=== PATIENT | female | born 1985 | race Two or more races ===

== ENCOUNTER 2023-03-08 11:50 | Emergency (ER) | payer OTHER ==
[~2023-03-08] VITALS: Ht 167.6 cm; Wt 61.2 kg
[~2023-03-08 11:50] MED LIST: PRENATAL CAPLE1 EACH PO; SYNTHROID50 MCG PO
[2023-03-08] MEDS ORDERED: LAMICTAL25 MG PO (12:50)
[2023-03-08] MEDS ORDERED: ADDERALL 20 MG20 MG (12:51)
[2023-03-08] MEDS ORDERED: WELLBUTRIN SR150 MG PO (12:51)
[2023-03-08] MEDS ORDERED: CLONAZEPAM1 MG PO (12:51)
[2023-03-08 14:13] LABS: HEMATOCRIT 44.5 % (36.0-45.00); HEMOGLOBIN 14.9 g/dL (12.0-15.00); MEAN CELL VOLUME 85.3 fL (80.00-100.00); MEAN CORPUSCULAR HEMOGLOBIN 28.6 pg (27.00-32.0); MEAN CORPUSCULAR HGB CONC 33.6 g/dl (32.0-36.0); PLATELET COUNT 244 K/uL (150-450); RED BLOOD COUNT 5.21 M/uL (4.00-6.00); RED CELL DISTRIBUTION WIDTH 13.4 % (11.5-14.5)
[2023-03-08] MEDS ORDERED: TUSNEL LIQUID178 ML PO (15:43)
[2023-03-08] MEDS ORDERED: ZITHROMAX500 MG PO (15:43)
[2023-03-08] MEDS ORDERED: ZYRTEC10 M3 PO (15:43)
== END 2023-03-08 16:02 | disposition home or self-care (01) ==
LOC: ER 11:50
PROVIDERS: General Practice
DX: R53.81 Other malaise (principal); B34.9 Viral infection, unspecified; Z20.822 Contact with and (suspected) exposure to COVID-19

== ENCOUNTER 2024-10-24 18:55 | Emergency (ER) | payer OTHER ==
[~2024-10-24] VITALS: Ht 167.6 cm; Wt 67.6 kg
[~2024-10-24 18:55] MED LIST changes: +ADDERALL 20 MG20 MG; +TUSNEL LIQUID178 ML PO; +WELLBUTRIN SR150 MG PO; +ZITHROMAX500 MG PO; +ZYRTEC10 M3 PO
[2024-10-24] MEDS ORDERED: CLEOCIN HCL150 MG (19:32)
[2024-10-24 20:47] LABS: HEMOGLOBIN 13.4 g/dL (11.2-15.7); RED BLOOD COUNT 4.82 M/uL (3.93-5.22)
[2024-10-24 20:48] LABS: BASO % 0.6 % (0.1-1.2); EOS # 0.18 (0.04-0.54); EOS % 2.5 % (0.7-7.0); LYMPH # 1.49 (1.18-3.74); MEAN CORPUSCULAR HEMOGLOBIN 27.8 pg (25.6-32.2); MONO # 0.51 (0.24-0.82); MONO % 7.2 % (4.7-12.5); NEUT # 4.85 (1.56-6.13); NEUT % 68.6 % (34.0-71.1); PLATELET COUNT 273 K/uL (163-369); RED CELL DISTRIBUTION WIDTH 12.6 % (11.6-14.4)
[2024-10-24] MEDS ORDERED: ACETAMINOPHEN 500 MG GEL..CAP PO ONE (20:49)
[2024-10-24 22:01] LABS: URINE APPEARANCE Clear; URINE BILIRRUBIN Negative (NEGATIVE); URINE BLOOD Negative; URINE COLOR Yellow; URINE GLUCOSE Negative (NEGATIVE); URINE KETONE Negative (NEGATIVE); URINE LEUKOCYTE Negative; URINE NITRATE Negative; URINE PROTEIN Negative (NEGATIVE); URINE UROBILINOGEN 0.2 E.U./dl
[2024-10-24 22:04] LABS: URINE BACTERIA 795.3 uL (0.0-1933); URINE EPITHELIAL CELLS 11.2 uL (0.0-38.8); URINE RBC 3.8 uL (0.0-20.8)
[2024-10-24 22:09] LABS: URINE CAST 0.14 uL (0.0-1.40)
[2024-10-25] MEDS ORDERED: LAMICTAL25 MG PO (13:14)
[2024-10-25] MEDS ORDERED: ZOLOFT50 MG PO (13:15)
[2024-10-25] MEDS ORDERED: CLONAZEPAM1 MG PO (13:15)
== END 2024-10-24 22:55 | disposition home or self-care (01) ==
LOC: ER 18:55
PROVIDERS: Emergency Medicine
DX: O20.8 Other hemorrhage in early pregnancy (principal); Z3A.08 8 weeks gestation of pregnancy

== ENCOUNTER 2024-10-25 08:00 | Outpatient (CLI) | payer OTHER ==
[~2024-10-25 08:00] MED LIST changes: +CLEOCIN HCL150 MG
[2024-10-25] MEDS ORDERED: LAMICTAL25 MG PO (13:14)
[2024-10-25] MEDS ORDERED: ZOLOFT50 MG PO (13:15)
[2024-10-25] MEDS ORDERED: CLONAZEPAM1 MG PO (13:15)
[2024-10-25 14:08] LABS: INR 1.01; PARTIAL THROMBOPLASTIN TIME 27.9 SECONDS (22.0-34.0)
[2024-10-25 15:11] LABS: RH POSITIVE
== END 2024-10-25 08:01 | disposition home or self-care (01) ==
LOC: LAB 08:00 → CIR.AMB 10-27 12:38 → EDSTATUS 10-27 16:16
PROVIDERS: ATTEND Specialist
DX: O02.1 Missed abortion (principal)